=== PATIENT | female | born 1950 | race Caucasian/White ===

== ENCOUNTER 2025-03-18 06:58 | Day surgery (SDC) | payer MEDICARE ==
[2025-03-18] MEDS ORDERED: Sodium Chloride 0.9% 10 ML Syringe FLUSH PRN (07:00)
[2025-03-18] MEDS: Lactated Ringers 1,000 ML IV SCH (07:13)
[2025-03-18] MEDS ORDERED: Propofol 200 MG/20 ML SDV ONE (07:28)
== END 2025-03-18 09:42 | disposition home or self-care (01) ==
LOC: KA.SDS 06:58
PROVIDERS: ATTEND Family Medicine
DX: Z12.11 Encounter for screening for malignant neoplasm of colon (principal); K52.9 Noninfective gastroenteritis and colitis, unspecified; K57.30 Diverticulosis of large intestine without perforation or abscess without bleeding; I48.0 Paroxysmal atrial fibrillation; E78.00 Pure hypercholesterolemia, unspecified; I10 Essential (primary) hypertension; Z88.0 Allergy status to penicillin; Z88.8 Allergy status to other drugs, medicaments and biological substances; Z79.01 Long term (current) use of anticoagulants; Z87.891 Personal history of nicotine dependence; Z79.899 Other long term (current) drug therapy; Z86.0101 Personal history of adenomatous and serrated colon polyps
CPT/HCPCS: 00811; 88305; J2704; J7120